=== PATIENT | female | born 1990 | race Caucasian/White ===

== ENCOUNTER 2019-12-20 12:36 | Inpatient (IN) | payer OTHER ==
[~2019-12-20] VITALS: Ht 175.3 cm; Wt 137.5 kg
[~2019-12-20 12:36] MED LIST: FURO-68 PO; LEVO750T31 PO; LISI-338 PO; LISI10TA2 PO; METO-239 PO
[2019-12-20 13:00] VITALS: BP 114/72
[2019-12-20] MEDS ORDERED: METO-239 PO (13:09)
[2019-12-20] MEDS ORDERED: SPIR25TA5 PO (13:09)
[2019-12-20] MEDS ORDERED: SACU1TAB4 PO (13:09)
[2019-12-20] MEDS: fentaNYL PF VIAL 100 MCG/2 ML VIAL IVP PRN ×2 (14:13→19:22)
[2019-12-20 15:00] VITALS: BP 109/63
--- NOTE | 2019-12-20 15:41 | PDOC2 ---
CARDIAC CONSULT DATE OF CONSULT Date of Consult DATE: 12/20/19 TIME: 15:28 REASON FOR CONSULT Reason for Consult: Chest pain, cardiomyopathy REFERRING PHYSICIAN Referring Physician: Dr. Valdez SOURCE Source: Chart review, Patient HISTORY OF PRESENT ILLNESS HISTORY OF PRESENT ILLNESS This is a 29 yo female who presented to [facility] secondary secondary to chest pain. Has a history of CMP. Trop negative. CXR without vascular congestion. Given significant risk factors, was referred to [facility] further evaluation and treatment. Patient reports that she woke up this morning in her usual health. Took her children to school as usual. When she got home, she developed sharp stabbing pain in her central chest. Pain was so intense that it dropped her to her knees. Given cardiac history, she decided to come to the ED for further evaluation and treatment. Pain was was worse with deep breathing and with ceratin movement. Resolved with fentanyl. No associated SOA, dizziness, diaphoresis, palpitations, or nausea/vomiting. Present to in November for similar pain. AMI was ruled out. No ischemic workup was conducted at that timer as patient had a cath 02/21 with normal coronaries. She Follows with Dr. Urbano with [facility] and [facility] HF clinic. Reports compliance with med. Is slightly bradycardic on tele presently. Denies any dizziness or syncopal episodes. PAST MEDICAL HISTORY Cardiovascular: CHF (NICM), Hyperlipidemia Pulmonary: Asthma Psych: Anxiety, Depression PAST SURGICAL HISTORY Past Surgical History: Cholecystectomy, Tonsillectomy FAMILY HISTORY Family History: Other (no pertinent hx) SOCIAL HISTORY Smoke: <1 pack per day ALCOHOL: occassional Lives: with Family CURRENT MEDICATIONS CURRENT MEDICATIONS Current Medications Medications (Trade) Dose Ordered Sig/Pelon Route PRN Reason Start Time Stop Time Status Last Admin Dose Admin Fentanyl Citrate (Fentanyl 2ml Vial) 50 mcg PRN Q3HRS PRN IVP PAIN 12/20/19 14:00 12/20/19 14:13 ALLERGIES ALLERGIES: Coded Allergies: bupropion (Verified Allergy, Intermediate, 02/26/18) "Bad Shakes" ROS Review of System 14 point ROS conducted with pertinent positives noted above in HPI PHYSICAL EXAM General: Alert, Oriented X3, Cooperative, No acute distress HEENT: Atraumatic, Mucous membr. moist/pink Lungs: Clear to auscultation Heart: Regular rate (SB) Abdomen: Soft, No tenderness Extremities: No edema, Normal pulses Skin: No breakdown, No significant lesion Neuro: Normal speech, Sensation intact Psych/Mental Status: Mental status NL, Mood NL MUSCULOSKELETAL: No deformity ECHOCARDIOGRAM ECHOCARDIOGRAM <Conclusion> The ejection fraction is severely impaired. The Ejection Fraction is 20%. There is global hypokinesis of the left ventricle. Septal motion consistent with conduction abnormality. Tissue Doppler imaging reveals moderate to severe left ventricular diastolic dysfunction. DATE: 02/26/18 175 Left Ventricle: The left ventricular size is normal. The left ventricular wall thickness is normal. Normal geometry. The left ventricular systolic function is moderately reduced. The ejection fraction by Arndt's biplane method is 36%. There is diffuse hypokinesis. Abnormal septal motion consistent with left bundle branch block. Right Ventricle: The right ventricular size, wall thickness and systolic function are normal. Normal biatrial size. No significant valve disease. The pulmonary artery pressure could not be estimated due to inadequate tricuspid regurgitation signal. No pericardial effusion. No prior for comparison. 12/16/19 - 2D + DOPPLER ECHO HEART CATH HEART CATH CORONARY ANGIOGRAPHY: LM is absent. There are two coronary ostial, adjacent to each other that give rise to the LAD/Lcx. LAD is a large caliber vessel with normal angiographic appearance. D1 is a moderate caliber vessel with normal angiographic appearance. LCx is a large caliber non-dominant vessel with normal angiographic appearance. OM1 is a moderate caliber vessel with normal angiographic appearance. RCA is a small to moderate caliber dominant vessel with normal angiographic appearance. RPDA and RPL are small caliber vessels with normal angiographic appearance. Conclusion 1. Elevated left sided filling pressures consistent with acute on chronic systolic HF 2. Normal angiographic appearance of the coronary arteries. Recommendations Aggressive Medical Therapy DATE: 02/26/181809 ASSESSMENT/PLAN ASSESSMENT/PLAN 1. Chest pain, atypical; Initial trop negative. EKG with LBBB, which was previously noted at . Cath 03/23 with normal coronaries. Most probably pleuritic in nature 2. Chronic systolic CHF; clinically compensated 3. NICM; Previous LVEF 20%. Echo last week shows slight improvement with LVEF 36%. Follow with HF clinic, Dr. Urbano 4. Sinus bradycardia; lowest 52 so far. No pauses. 5. Tobaccoism; discussed/encouraged cessation Recommendations Trend trop Resume HF optimization with Entresto and spironolactone Hold metoprolol for now with bradycardia Monitor tele overnight Supportive care CARL CAPELLAN APRN Dec 20, 2019 15:41
[2019-12-20 16:06] LABS: CHOLESTEROL/HDL RATIO 5.7
[2019-12-20 19:22] VITALS: BP 128/82
[2019-12-20] MEDS ORDERED: traZODone 50 MG TABLET. PO PRN (20:30)
[2019-12-20] MEDS: SACUBITRIL/VALSARTAN 49/51MG TABLET. PO SCH (21:18)
[2019-12-20 21:27] VITALS: BP 126/61
[2019-12-20] MEDS ORDERED: ONDANSETRON PF 4 MG/2 ML VIAL. IVP PRN (21:45)
[2019-12-20 22:54] VITALS: BP 100/51
[2019-12-21 03:50] VITALS: BP 118/70
[2019-12-21] MEDS: fentaNYL PF VIAL 100 MCG/2 ML VIAL IVP PRN ×2 (06:09→09:22)
[2019-12-21 07:00] VITALS: BP 105/45
[2019-12-21] MEDS ORDERED: SPIRONOLACTONE 25 MG TABLET PO SCH (09:00)
[2019-12-21] MEDS ORDERED: FLU VACC QS 2020-21(6MOS+)/PF 0.5 ML SYRINGE. VAX IM ONE (09:00)
[2019-12-21] MEDS: SACUBITRIL/VALSARTAN 49/51MG TABLET. PO SCH (09:15)
--- NOTE | 2019-12-21 10:40 | PDOC ---
CARL CAPELLAN [employer]INE [employer]SEMBLER 12/21/19 1040: CARDIO Progress Notes Date and Time Date of Service 12/21/19 Time of Evaluation 1030 Subjective Subjective: No shortness of breath, No Palpitations, No Dizziness, Other (CP improved ) Vitals Vitals Vital Signs Date Time Temp Pulse Resp B/P (MAP) Pulse Ox O2 Delivery O2 Flow Rate FiO2 12/21/19 09:22 100 Room Air 2.0 12/21/19 09:15 63 105/45 12/21/19 07:00 97.6 21 97.6 Weight Weight [ ] Input and Output Intake and Output Intake and Output 12/21/19 07:00 Intake Total 950 ml Balance 950 ml Intake Oral 950 ml # Voids 3 Laboratory Labs Laboratory Tests Test 12/20/19 15:20 12/20/19 19:10 Troponin I Quantitative < 0.017 ng/mL (0.000-0.055) < 0.017 ng/mL (0.000-0.055) Triglycerides Level 145 mg/dL (0-150) Cholesterol Level 195 mg/dL (0-200) LDL Cholesterol, Calculated 132 mg/dL (0-100) VLDL Cholesterol, Calculated 29 mg/dL (0-40) Non-HDL Cholesterol Calculated 161 mg/dL (0-129) HDL Cholesterol 34 mg/dL (40-60) Cholesterol/HDL Ratio 5.7 Thyroid Stimulating Hormone (TSH) 2.000 uIU/mL (0.358-3.74) Physical Exam HEENT: Neck Supple W Full Motion Chest: Symmetric LUNGS: Clear to Auscultation, Other Heart: RRR Abdomen: Soft N/T, Other (obese) Extremities: No Edema Neurology: alert, oriented, follow commands Assessment Assessment 1. Chest pain, atypical; AMI ruled out. Cath 03/23 with normal coronaries. Most probably pleuritic in nature 2. Chronic systolic CHF; clinically compensated 3. NICM; LVEF 36%. 4. Sinus bradycardia; lowest 52 so far. No pauses. 5. Tobaccoism; discussed/encouraged cessation 6. Dyslipidemia; LDL 132 7. Chronic LBBB. Recommendations Continue HF optimization with Entresto and spironolactone Resume BB therapy and monitor for bradycardia Supportive care Follow with HF clinic, Dr. Sundeep Castrofation of Admission Dx: Justifications for Admission: Justification of Admission Dx: Yes (systolic CHF, chest pain ) CHERYL GAMBINO MD 12/22/19 1153: CARDIO Progress Notes Plan Plan Late entry for 12/21/2019 Patient seen and examined. Agree with above nurse practitioner note. CARL CAPELLAN APRN Dec 21, 2019 10:40 CHERYL GAMBINO MD Dec 22, 2019 11:53
[2019-12-21 11:00] VITALS: BP 125/66
[2019-12-21] MEDS ORDERED: OXYC-325 PO (11:03)
--- NOTE | 2019-12-21 12:36 | NUR ---
SS following for discharge planning. SS reviewed pt chart and discussed with pt RN. Pt is from home with spouse and is currently on room air. Discharge order on the chart for home with self care.
--- NOTE | 2019-12-21 12:38 | NUR ---
Discharge Note: [facility] [address] [place] [id number] Discharge instructions and discharge home medications reviewed with Patient and a copy given. All questions have been answered and understanding verbalized. The following instructions and handouts were given: DIET, ACTIVITY, MEDICATION LIST AND FOLLOW UP INSTRUCTIONS PROVIDED TO PATIENT. PATIENT'S HOME MEDICATIONS RETURNED TO PATIENT FROM PHARMACY. Discontinued lines and drains: Peripheral IV DICSONTINUED AND CATHETER intact. Patient discharged to Home or Self Care with Friend via Wheelchair
--- NOTE | 2019-12-21 13:10 | HP ---
ADMIT DATE: 12/20/2019 HISTORY OF PRESENT ILLNESS: The patient is a 29-year-old female patient who came to the Emergency Room of [facility] complaining of sudden onset of substernal chest pain associated shortness of breath. She said that this is atypical for her. She does not typically have any chest pain. She follows with Cardiology for nonischemic cardiomyopathy. The last echocardiogram a few weeks ago, was 36%. Pain has been constant, sharp in nature, worse with deep breathing and movement. Denies any trauma or lifting. She denied any nausea or vomiting. Denied any diaphoresis, denied any radiation of the pain. She was extensively investigated in the Emergency Room and her EKG showed that she was in sinus rhythm. Her first set of cardiac enzyme was normal and given his extensive past medical history, she was transferred to [facility] for evaluation by the Cardiology team. PAST MEDICAL HISTORY: Significant for nonischemic cardiomyopathy, morbid obesity, obstructive sleep apnea, hypertension, hyperlipidemia, has had sleep study done at home and she is scheduled to have her machine on 12/22/2019. PAST SURGICAL HISTORY: Significant for 3 C-sections, cholecystectomy and also esophagogastroduodenoscopy. ALLERGIES: SHE IS ALLERGIC TO WELLBUTRIN. MEDICATIONS: She is currently on metoprolol 25 mg at bedtime, she is on Entresto 97/103 mg one tablet twice a day and spironolactone 25 mg, she takes half a tablet in the morning. FAMILY HISTORY: She has one brother and one sister, younger, both healthy. She does not know her biological father. Her mother is still alive at age of 48 and has fibromyalgia. SOCIAL HISTORY: She is , has 3 sons and 1 daughter. She quit smoking. She does not drink alcohol; however, she continued to smoke marijuana. She is currently on disability and a [id number] mom. REVIEW OF SYSTEMS: The patient denied any blurring of vision, cataract, glaucoma or macular degeneration. Denied any earache, tinnitus or sensorineural deafness. Denied any nosebleeds, stuffy nose or postnasal drip. Denied any sore throat, sore tongue, toothache, hoarseness of voice or difficulty swallowing. Denied any nausea, vomiting, diarrhea or constipation. Denied any hematemesis, melena, or hematochezia. Denied any dysuria, frequency or hematuria. Did complain of chest pain that is sharp, lasts about 1 minute, comes and goes. PHYSICAL EXAMINATION: GENERAL: On arrival to the Emergency Room, she looked well and was clearly in no apparent respiratory distress. No pallor, jaundice, cyanosis or thyromegaly. No jugular venous distention. No lower limb edema. VITAL SIGNS: Her heart rate was 52, blood pressure was 104/40, temperature was 97.9, respiratory rate was 20, and oxygen saturation was 98%. HEAD, EYES, EARS, NOSE AND THROAT: Normocephalic, atraumatic. NECK: Supple. HEART: Showed normal first and second heart sounds. No gallop or murmur. CHEST: Clear to auscultation. No crepitation or rhonchi. ABDOMEN: Distended, soft, nontender. NEUROLOGIC: She was grossly intact. LABORATORY DATA: Her lab work at [facility] showed a white cell count of 11,500, hemoglobin 13.6, hematocrit 39, MCV 91, and platelet count 223,000. Her chemistry showed a serum sodium 137, potassium 3.8, chloride 103, bicarbonate 27, anion gap of 7, BUN 10, creatinine 0.5, estimated GFR was 143 mL per minute. Her glucose 108, calcium was 9.5. First set of cardiac enzymes showed troponin to be less than 0.017. Her chest x-ray showed the heart size at the upper limit of normal, similar to prior study of lungs and pleura. No evidence of focal airspace consolidation or pleural effusion. Pulmonary vasculature unremarkable. Bones and soft tissue, no acute osseous abnormality. ASSESSMENT AND PLAN: The patient was transferred to [facility] to do 2 more sets of cardiac enzyme and consult the Cardiology team. LUIS MIGUEL PACHECO MD DR: TIFFANY/rigo JOB#: [id number] / [id number]
--- NOTE | 2019-12-21 13:42 | DS ---
DATE OF DISCHARGE: 12/21/2019 HOSPITAL COURSE: The patient was transferred from [facility] Emergency Room with a complaint of chest pain. She has had 2 more sets of cardiac enzymes, both were less than 0.017. She was seen in consultation by the Cardiology team and basically it was felt that her pain is atypical and likely due to gastroesophageal reflux disease versus musculoskeletal and they recommended that to continue all her current medications and follow with her horse trainer at [facility]. When I saw her this afternoon, she was sitting slightly propped up in bed, in no apparent distress. She has no pain at the time I saw, although she said she continued to have this episode of sharp pain that lasts about seconds. She is not short of breath during that time. She has no nausea, no vomiting, no diaphoresis, respond to pain medication. PHYSICAL EXAMINATION: GENERAL: When I examined her, she looked well and was clearly in no apparent respiratory distress. No pallor, jaundice, cyanosis or thyromegaly. No jugular venous distention. No lower limb edema. VITAL SIGNS: Her heart rate was 81, blood pressure was 125/66, temperature was 97.9, respiratory rate 21 and oxygen saturation was 95% on room air. HEAD, EYES, EARS, NOSE AND THROAT: Showed normocephalic, atraumatic. NECK: Supple. CARDIAC: Normal first and second heart sounds. No gallop, rub or murmur. CHEST: Clear to auscultation. No crepitation or rhonchi. ABDOMEN: Distended, soft, nontender. NEUROLOGIC: She is awake, alert, responding appropriately. All cranial nerves intact. EXTREMITIES: She moves extremities without difficulty. She ambulates without assistance or assistive devices. LABORATORY DATA: This morning showed her serum triglycerides were 145, total cholesterol 195, LDL was 132, VLDL was 29, HDL was 34, ratio was 5.7. Her TSH was 2. DISCHARGE MEDICATIONS: The patient was discharged home to continue on metoprolol succinate 25 mg once a day, Entresto 97/103 one tablet twice a day and spironolactone 25 mg once a day. She was given a prescription for oxycodone/APAP 5/325 one tablet every 4 hours. FINAL DISCHARGE DIAGNOSES: Atypical chest pain, myocardial infarction ruled out; nonischemic cardiomyopathy, in fact, her ejection fraction has improved from 20% to 36% on her most recent echocardiogram; morbid obesity; obstructive sleep apnea; hypertension; hyperlipidemia. The patient was advised to follow with her primary care physician as well as her horse trainer at [facility]. LUIS MIGUEL PACHECO MD DR: TIFFANY/rigo JOB#: [id number] / [id number]
== END 2019-12-21 12:20 | disposition home or self-care (01) | DRG 392 ==
LOC: 2 NORTH 12:40
PROVIDERS: ADMIT Internal Medicine; ATTEND Internal Medicine
DX: K21.9 Gastro-esophageal reflux disease without esophagitis (principal); I42.8 Other cardiomyopathies; I50.22 Chronic systolic (congestive) heart failure; Z68.41 Body mass index [BMI] 40.0-44.9, adult; R07.89 Other chest pain; R00.1 Bradycardia, unspecified; E78.5 Hyperlipidemia, unspecified; F12.90 Cannabis use, unspecified, uncomplicated; F17.210 Nicotine dependence, cigarettes, uncomplicated; I11.0 Hypertensive heart disease with heart failure; I44.7 Left bundle-branch block, unspecified; J45.909 Unspecified asthma, uncomplicated; E66.01 Morbid (severe) obesity due to excess calories; F32.9 Major depressive disorder, single episode, unspecified; F41.9 Anxiety disorder, unspecified; G47.33 Obstructive sleep apnea (adult) (pediatric); Z88.8 Allergy status to other drugs, medicaments and biological substances; Z79.899 Other long term (current) drug therapy; Z90.49 Acquired absence of other specified parts of digestive tract; Z71.6 Tobacco abuse counseling
CPT/HCPCS: 36415; 80061; 84443; 84484; 90471; 90686; J3010; G0378